=== PATIENT | female | born 1965 | race Caucasian/White ===

== ENCOUNTER 2017-07-19 14:27 | Emergency (ER) | payer BC ==
[2017-07-19] MEDS ORDERED: GUAIFENESIN/D-METH. 10 ML UDC PO ONE (15:48)
--- NOTE | 2017-07-19 15:50 | Emergency Department Record ---
History of Present Illness - General Chief complaint: Flu Like Symptoms Stated complaint: FLU -LIKE SYMPTOMS Time Seen by Provider: 07/19/17 15:08 Source: Patient, RN notes reviewed Mode of Arrival: Ambulatory - History of Present Illness Initial comments: cough and congestion and two courses of antibiotics and neg flu test by Dr. Guerrier. and not getting better Onset/Timin -: Month(s) Severity: Moderate Severity scale (1-10): 7 Quality: Aching Consistency: Constant - Harbert Coma Scale Eye Response: (4) Open spontaneously Motor Response: (6) Obeys commands Verbal Response: (5) Oriented Harbert Total: 15 - Related Data Home Medications Medication Instructions Recorded Confirmed Last Taken Albuterol Sulfate 0.083% [Neb] 3 ml NEB .EVERY 4-6 HOURS PRN 07/19/17 07/19/17 1 Day Ago ~07/18/17 Albuterol Sulfate [Proair Hfa] 1 - 2 puff IH .EVERY 4-6 HOURS PRN 07/19/1707/19 1 Day Ago ~07/18/17 Previous Rx's Medication Instructions Recorded Prednisone [Prednisone 10Mg] 10 mg PO ASDIR #30 tab 07/19/17 Allergies Allergy/AdvReac Type Severity Reaction Status Date / Time codeine Allergy Unknown HEADACHE Verified 07/19/17 15:50 hydrocodone Allergy VOMITING Verified 07/19/17 15:50 Travel Screening - Travel/Exposure Within Last 30 Days Have you traveled within the last 30 days?: No - Travel/Exposure Within Last Year Have you traveled outside the [place] in the last year?: No - Additonal Travel Details Have you been exposed to anyone with a communicable illness?: No - Travel Symptoms Symptom Screening: None Review of Systems Reviewed: No additional complaints except as noted below Constitutional: Reports: As per HPI. Denies: Chills, Fever, Malaise, Night sweats, Weakness, Weight change Eyes: Reports: As per HPI. Denies: Eye discharge, Eye pain, Photophobia, Vision change ENT: Reports: As per HPI, Congestion. Denies: Dental pain, Ear pain, Epistaxis , Hearing loss, Throat pain Respiratory: Reports: As per HPI, Cough. Denies: Dyspnea, Hemoptysis, Stridor, Wheezes Cardiovascular: Reports: As per HPI. Denies: Arrhythmia, Chest pain, Dyspnea on exertion, Edema, Murmurs, Orthopnea, Palpitations, Paroxysmal nocturnal dyspnea, Rheumatic Fever, Syncope Endocrine: Reports: As per HPI. Denies: Fatigue, Heat or cold intolerance, Polydipsia, Polyuria Gastrointestinal: Reports: As per HPI. Denies: Abdominal pain, Constipation, Diarrhea, Hematemesis, Hematochezia, Melena, Nausea, Vomiting Genitourinary: Reports: As per HPI. Denies: Abnormal menses, Discharge, Dyspareunia, Dysuria, Frequency, Hematuria, Incontinence, Retention, Urgency Musculoskeletal: Reports: As per HPI. Denies: Arthralgia, Back pain, Gout, Joint swelling, Myalgia, Neck pain Skin: Reports: As per HPI. Denies: Bruising, Change in color, Change in hair/ nails, Lesions, Pruritus, Rash Neurological: Reports: As per HPI. Denies: Abnormal gait, Confusion, Headache, Numbness, Paresthesias, Seizure, Tingling, Tremors, Vertigo, Weakness Psychiatric: Reports: As per HPI. Denies: Anxiety, Auditory hallucinations, Depression, Homicidal thoughts, Suicidal thoughts, Visual hallucinations Hematological/Lymphatic: Reports: As per HPI. Denies: Anemia, Blood Clots, Easy bleeding, Easy bruising, Swollen glands Past Medical History - SOCIAL HISTORY Smoking Status: Current every day smoker Alcohol Use: None Drug Use: None - RESPIRATORY Hx Respiratory Disorders: Yes Hx Asthma: Yes Hx Sleep Apnea: Yes Hx of CPAP: Yes - CARDIOVASCULAR Hx Cardio Disorders: No - NEURO Hx Neuro Disorders: Yes Hx Headaches: Yes Hx of Migraines: Yes (Jun, 2015) - GI Hx GI Disorders: Yes Hx Reflux: Yes Hx Nausea/Vomiting: Yes Comment:: c/o diarrhea - Hx Genitourinary Disorders: Yes Hx Bladder Problem: Yes Comment:: LMP 3 years ago - ENDOCRINE Hx Endocrine Disorders: No - MUSCULOSKELETAL Hx Musculoskeletal Disorders: No - PSYCH Hx Psych Problems: Yes Hx Anxiety: Yes Hx Depression: Yes - HEMATOLOGY/ONCOLOGY Hx Hematology/Oncology Disorders: No Family Medical History Any Significant Family History?: Yes Hx Cancer: Father, Grandparents Hx Heart Disease: Mother Hx HTN: Mother Physical Exam - General General Appearance: Alert, Oriented x3, Cooperative, No acute distress - Head Head exam: Normal inspection - Eye Eye exam: Normal appearance, PERRL Pupils: Normal accommodation - ENT ENT exam: Normal exam, Mucous membranes moist, Normal external ear exam, Normal orophraynx, TM's normal bilaterally Ear exam: Normal external inspection. negative: External canal tenderness Nasal Exam: Normal inspection. negative: Discharge, Sinus tenderness Mouth exam: Normal external inspection, Tongue normal Teeth exam: Normal inspection. negative: Dental caries Throat exam: Normal inspection. negative: Tonsillar erythema, Tonsillar exudate - Neck Neck exam: Normal inspection, Full ROM. negative: Tenderness - Respiratory Respiratory exam: Normal lung sounds bilaterally. negative: Respiratory distress - Cardiovascular Cardiovascular Exam: Regular rate, Normal rhythm, Normal heart sounds - GI/Abdominal GI/Abdominal exam: Soft, Normal bowel sounds. negative: Tenderness - Rectal Rectal exam: Deferred - exam: Deferred - Extremities Extremities exam: Normal inspection, Full ROM, Normal capillary refill. negative: Tenderness - Back Back exam: Reports: Normal inspection, Full ROM. Denies: Muscle spasm, Rash noted, Tenderness - Neurological Neurological exam: Alert, Normal gait, Oriented X3, Reflexes normal - Psychiatric Psychiatric exam: Normal affect, Normal mood - Skin Skin exam: Dry, Intact, Normal color, Warm Course Vital Signs 07/19/17 14:32 Temperature 98.2 F Pulse Rate 74 Respiratory 20 Rate Blood Pressure 121/68 Pulse Ox 98 - Reevaluation(s) Reevaluation #1: patient has hyperactive airway and will start prednisone 07/19/17 15:49 Medical Decision Making - Data Complexity MDM Data: X-Ray Ordered and/or Reviewed (negative chest xray) Disposition Clinical Impression: Viral syndrome Disposition: Home, Self-Care Condition: (1) Good Instructions: Viral Syndrome (ED) Additional Instructions: follow up with Dr. Guerrier in 3 -4 days prednisone 40 mg for three days than 30 mg for three days than 20 mg for thr days than 10 mg for three days Prescriptions: Prednisone [Prednisone 10Mg] 10 mg PO ASDIR #30 tab Forms: Patient Portal Access Time of Disposition: 15:49 Quality - Quality Measures Quality Measures: N/A - Blood Pressure Screening Does Patient Have Any of the Following: No Blood Pressure Classification: Pre-Hypertensive BP Reading Systolic Measurement: 121 Diastolic Measurement: 68 Screening for High Blood Pressure: < Pre-Hypertensive BP, F/U Documented > [ G8950] Pre-Hypertensive Follow-up Interventions: Referral to alternative/primary care provider.
--- NOTE | 2017-07-20 19:22 | RADIOLOGY REPORT ---
EXAM: CHEST 2 VIEWS HISTORY: PERSISTENT COUGH FOR THE PAST MONTH. BODY ACHES. TECHNIQUE: PA and lateral upright views of the chest were obtained. COMPARISON: 03/21/2014. FINDINGS: The heart, mediastinum, and pulmonary vasculature are normal. There is minor atelectasis or infiltrate within the lung bases bilaterally. The upper lung flores are clear. There is no pneumothorax or effusion. The bones appear intact. IMPRESSION: MILD ATELECTASIS OR INFILTRATE AT THE LUNG BASES BILATERALLY, LEFT GREATER THAN RIGHT. JOB NUMBER: [id number] [facility]
== END 2017-07-19 16:23 | disposition home or self-care (01) ==
LOC: ER 14:27
DX: B34.9 Viral infection, unspecified (principal); R05 Cough; F17.210 Nicotine dependence, cigarettes, uncomplicated
CPT/HCPCS: 71046; 99283

== ENCOUNTER 2017-08-19 13:44 | Day surgery (SDC) | payer BC ==
[~2017-08-19 13:44] MED LIST: ACETAMINOPHEN 1,000 MG/100 ML BTL IV ONE; CEFAZOLIN 2 Gram 2 GM/50 ML BAG IVPB ONE
[2017-08-19] MEDS ORDERED: FENTANYL PF 100MCG/2ML VIAL IV ONE (13:45)
[2017-08-19] MEDS ORDERED: SEVOFLURANE 250 ML INH ONE (13:45)
[2017-08-19] MEDS ORDERED: MIDAZOLAM HCL 2MG/2ML VIAL IV ONE (13:45)
[2017-08-19] MEDS ORDERED: LIDOCAINE 1% W/EPI 1:200,000 MPF 30ML SQ ONE (13:45)
[2017-08-19] MEDS ORDERED: ONDANSETRON HCL IV 4 MG/2 ML VIAL IVP ONE (13:45)
[2017-08-19] MEDS ORDERED: LIDOCAINE 2% MDV (20MG/ML) 20ML VIAL IV ONE (13:45)
[2017-08-19] MEDS ORDERED: KETOROLAC 30 MG/ML VIAL IVP ONE (13:45)
[2017-08-19] MEDS ORDERED: PROPOFOL 10 MG/ML VIAL IV ONE (13:45)
--- NOTE | 2017-08-20 12:31 | Operative Note ---
DATE OF SURGERY: 08/19/2017 PREOPERATIVE DIAGNOSIS: Mixed urinary incontinence, predominantly stress component. POSTOPERATIVE DIAGNOSIS: Mixed urinary incontinence, predominantly stress component. OPERATION: Transobturator mid urethral sling with Kris mesh and cystoscopy. Anesthesia: General. Surgeon: Too Alvarenga MD [employer] Clock [employer] Watch Hands: None. Indication: A 51-year-old female with history of incontinence and workup has revealed predominantly stress type leaking. We discussed various management options for her incontinence and ultimately she has decided to move ahead with a transobturator sling. We discussed the surgery in detail including potential risks preoperatively including pain, bleeding, infection, iatrogenic injury, urinary retention, recurring incontinence, and mesh-related complications including erosion, especially highlighting the fact to her that as a smoker, she is at a heightened risk for wound healing and mesh erosion complications. She indicated understanding and wanted to proceed as discussed. PROCEDURE: Preop informed consent was obtained. Antibiotics were given. Sedation was administered. The patient was brought to the operating room and given general anesthetic and carefully placed in the lithotomy position. Genitalia were clipped, prepped and draped and in the usual sterile fashion. Tavarez catheter was placed in the bladder, and the bladder was completely emptied. Stay sutures 2-0 silk were used to expose the labia and a weighted speculum was placed in the vagina. The bladder neck was identified and marked as well as the urethral meatus, and a midline suburethral incision was made chcf between the meatus and the bladder neck. This was carried down carefully with lateral blunt dissection to expose the space beneath the pubic rami on either side without difficulty. The wound was irrigated with antibiotics at that point. Our attention turned to placing the needles. The transobturator needles, using the helical needles contained in the Kris mesh system were used. Thigh incision made just below the attachment of the adductor longus tendon was made on either side roughly corresponding to the level of the clitoris. With one finger in the vaginal incision underneath the pubic rami, each needle was guided around and underneath the pubic ramus and guided out of the vaginal incision taking care to stay within the vaginal incision. After the needles were placed, cystoscopy was performed. There was no evidence of any bladder violation. Both ureters were identified and were effluxing clear yellow urine. The tape was then secured to each needle and then backed out to snug the sling up to the mid urethra. The area was then irrigated with copious amounts of antibiotic solution and it appeared that I had good location of the sling and without undue tension, but after I released the tapes at the level of the skin incision, it appeared to be that the sling was too loose. At that point, I removed that sling and performed the exact procedure all over again including the cystoscopy to confirm there was no bladder or ureteral injury. The second time the sling was left in excellent position in the mid urethra without any undue tension on the urethra but also not loose. This was confirmed using a curved Spears scissors between the urethra and the sling. The area was then irrigated out with antibiotics again and the vaginal incision was closed with running 2-0 Vicryl. The thigh incisions were closed with Dermabond and the bladder was filled with approximately 200 mL of sterile water before removing the Tavarez catheter and waking the patient. She was transferred to recovery in stable condition. Sponge, needle, and instrument counts correct at the end of the case. There were no intraoperative complications noted. PLAN: The patient will be given a voiding trial in recovery. If she is unable to void successfully, Tavarez catheter will be placed and she will follow up in the office later this week. If she is able to void successfully today, then she will be following up in the [facility] in 1 week to check postvoid residual and review her symptoms. She was given explicit postoperative instructions and care instructions, and [place] paperwork was also filled out as well. CC: Dr. Chey BARROW
== END 2017-08-19 18:55 | disposition home or self-care (01) ==
LOC: SUR 13:44
PROVIDERS: ATTEND Urology
DX: N39.46 Mixed incontinence (principal); J45.909 Unspecified asthma, uncomplicated; F41.8 Other specified anxiety disorders; F17.210 Nicotine dependence, cigarettes, uncomplicated
CPT/HCPCS: 57288; 00910; J1885; J2405; J3010; J0690; C1771

== ENCOUNTER 2018-01-02 10:52 | Observation (INO) | payer BC ==
[2018-01-02] MEDS ORDERED: ASPIRIN 81 MG CHEWABLE TABLET PO ONE (11:12)
[2018-01-02] MEDS ORDERED: NITROGLYCERIN 0.4MG SL TABLET #25 BTL SL PRN ×2 (11:12→14:04)
[2018-01-02 11:52] LABS: BASO % 0.5 % (0-6); EOS % 1.4 % (0-6); GRAN % 52.1 % (47-80); HEMATOCRIT 45.3 % (35.0-47.0); LYMPH % 36.9 % (16-45); MEAN CELL VOLUME 96.4 fl (81-97); MEAN CORPUSCULAR HEMOGLOBIN 31.9 pg (27-33); MEAN CORPUSCULAR HGB CONC 33.1 g/dl (32-36); MEAN PLATELET VOLUME 11.4 fl (7.4-10.4); MONO % 9.1 % (0-9); PLATELET COUNT 211 K/uL (130-400); RED CELL DISTRIBUTION WIDTH 13.6 % (11.5-14.5); WHITE BLOOD COUNT W/O DIFF 6.3 K/uL (4.2-12.2)
[2018-01-02 12:01] LABS: BLOOD UREA NITROGEN 15 mg/dL (6-20); CREATININE 0.8 mg/dL (0.5-0.9); EST GLOMERULAR FILTRATION RATE > 60 mL/min
[2018-01-02 12:02] LABS: TOTAL PROTEIN 7.4 g/dL (6.6-8.7)
[2018-01-02 12:04] LABS: GLUCOSE,RANDOM 87 mg/dL (74-109)
[2018-01-02 12:06] LABS: ALT/SGPT 20 U/L (<33); AST/SGOT 23 U/L (10.0-35.0)
[2018-01-02 12:07] LABS: ALB/GLOB RATIO 1.5 (1.1-1.8); ALBUMIN 4.4 g/dL (4.0-5.0); ALKALINE PHOSPHATASE 89 U/L (35-104); CREATINE PHOSPHOKINASE 146 U/L (26-192)
[2018-01-02 12:09] LABS: CKMB 3.1 ng/mL (<3.77)
[2018-01-02 12:10] LABS: NTpro B-NATRIURETIC PEPTIDE 22.65 pg/mL (<125)
--- NOTE | 2018-01-02 13:31 | Emergency Department Record ---
History of Present Illness - General Chief Complaint: Chest Pain Stated Complaint: CHEST PRESSURE Time Seen by Provider: 01/02/18 10:54 Source: Patient Mode of Arrival: Ambulatory Limitations: No limitations - History of Present Illness Initial Comments: pt has been having intermittent cp/pressure this week. today it has lasted 2 hrs and was up to 7/10. she also had nausea. no sob or sweating or radiation. her father had an mi in his 40s and she smokes. MD Complaint: Chest pain Onset/Timin -: Week(s) Pain Location: Left chest Pain Radiation: Back Severity: Mild Quality: Other Consistency: Constant, Intermittent Improves With: Nothing Worsens With: Nothing Treatments Prior to Arrival: None - Related Data Allergies Allergy/AdvReac Type Severity Reaction Status Date / Time codeine Allergy Unknown HEADACHE Verified 01/02/18 10:59 hydrocodone Allergy VOMITING Verified 01/02/18 10:59 Travel Screening - Travel/Exposure Within Last 30 Days Have you traveled within the last 30 days?: No Review of Systems Reviewed: No additional complaints except as noted below Constitutional: Reports: As per HPI. Denies: Chills, Fever, Malaise, Night sweats, Weakness, Weight change Eyes: Reports: As per HPI. Denies: Eye discharge, Eye pain, Photophobia, Vision change ENT: Reports: As per HPI. Denies: Congestion, Dental pain, Ear pain, Epistaxis , Hearing loss, Throat pain Respiratory: Reports: As per HPI. Denies: Cough, Dyspnea, Hemoptysis, Stridor, Wheezes Cardiovascular: Reports: As per HPI, Chest pain. Denies: Arrhythmia, Dyspnea on exertion, Edema, Murmurs, Orthopnea, Palpitations, Paroxysmal nocturnal dyspnea, Rheumatic Fever, Syncope Endocrine: Reports: As per HPI. Denies: Fatigue, Heat or cold intolerance, Polydipsia, Polyuria Gastrointestinal: Reports: As per HPI, Nausea. Denies: Abdominal pain, Constipation, Diarrhea, Hematemesis, Hematochezia, Melena, Vomiting Genitourinary: Reports: As per HPI. Denies: Abnormal menses, Discharge, Dyspareunia, Dysuria, Frequency, Hematuria, Incontinence, Retention, Urgency Musculoskeletal: Reports: As per HPI. Denies: Arthralgia, Back pain, Gout, Joint swelling, Myalgia, Neck pain Skin: Reports: As per HPI. Denies: Bruising, Change in color, Change in hair/ nails, Lesions, Pruritus, Rash Neurological: Reports: As per HPI. Denies: Abnormal gait, Confusion, Headache, Numbness, Paresthesias, Seizure, Tingling, Tremors, Vertigo, Weakness Psychiatric: Reports: As per HPI. Denies: Anxiety, Auditory hallucinations, Depression, Homicidal thoughts, Suicidal thoughts, Visual hallucinations Hematological/Lymphatic: Reports: As per HPI. Denies: Anemia, Blood Clots, Easy bleeding, Easy bruising, Swollen glands Past Medical History - SOCIAL HISTORY Smoking Status: Current every day smoker Alcohol Use: Occasional Drug Use: None - RESPIRATORY Hx Respiratory Disorders: Yes Hx Asthma: Yes Hx Sleep Apnea: Yes Hx of CPAP: Yes - CARDIOVASCULAR Hx Cardio Disorders: No - NEURO Hx Neuro Disorders: Yes Hx of Migraines: Yes - GI Hx GI Disorders: Yes Hx Reflux: Yes - Hx Genitourinary Disorders: Yes Hx Bladder Problem: Yes - ENDOCRINE Hx Endocrine Disorders: No - MUSCULOSKELETAL Hx Musculoskeletal Disorders: Yes Hx Arthritis: Yes (shoulders and back) - PSYCH Hx Psych Problems: Yes Hx Anxiety: Yes Hx Depression: Yes - HEMATOLOGY/ONCOLOGY Hx Hematology/Oncology Disorders: No Family Medical History Any Significant Family History?: Yes Hx Cancer: Father, Grandparents Hx Heart Disease: Mother Hx HTN: Mother Physical Exam - General General Appearance: Alert, Oriented x3, Cooperative, Mild distress - Head Head exam: Normal inspection - Eye Eye exam: Normal appearance, PERRL, EOMI Pupils: Normal accommodation - ENT ENT exam: Normal exam, Mucous membranes moist, Normal external ear exam, Normal orophraynx Ear exam: Normal external inspection. negative: External canal tenderness Nasal Exam: Normal inspection. negative: Discharge, Sinus tenderness Mouth exam: Normal external inspection, Tongue normal Teeth exam: Normal inspection. negative: Dental caries Throat exam: Normal inspection. negative: Tonsillar erythema, Tonsillar exudate - Neck Neck exam: Normal inspection, Full ROM. negative: Tenderness - Respiratory Respiratory exam: Normal lung sounds bilaterally. negative: Respiratory distress - Cardiovascular Cardiovascular Exam: Regular rate, Normal rhythm, Normal heart sounds - GI/Abdominal GI/Abdominal exam: Soft, Normal bowel sounds. negative: Tenderness - Rectal Rectal exam: Deferred - exam: Deferred - Extremities Extremities exam: Normal inspection, Full ROM, Normal capillary refill. negative: Tenderness - Back Back exam: Reports: Normal inspection, Full ROM. 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 ] Respiratory 20 18 20 Rate Blood Pressure 145/87 Blood Pressure 132/82 127/76 [Right Arm] Pulse Ox 97 98 95 01/02/18 01/02/18 12:06 12:51 Temperature Pulse Rate Pulse Rate [ 76 72 Warrant Server ] Respiratory 18 20 Rate Blood Pressure Blood Pressure 126/75 142/90 [Right Arm] Pulse Ox 96 98 - Reevaluation(s) Reevaluation #1: 01/02/18 13:31 ntg relieved pain Medical Decision Making - Lab Data Result diagrams: 01/02/18 11:27 01/02/18 11:27 Lab Results 01/02/18 01/02/18 01/02/18 Range/Units 11:27 11:27 11:27 WBC 6.3 (4.2-12.2) K/uL RBC 4.70 (3.80-5.40) M/uL Hgb 15.0 (11.6-16.0) gm/dl Hct 45.3 (35.0-47.0) % MCV 96.4 (81-97) fl MCH 31.9 (27-33) pg MCHC 33.1 (32-36) g/dl RDW 13.6 (11.5-14.5) % Plt Count 211 (130-400) K/uL MPV 11.4 H (7.4-10.4) fl Gran % 52.1 (47-80) % Lymphocytes % 36.9 (16-45) % Monocytes % 9.1 H (0-9) % Eosinophils % 1.4 (0-6) % Basophils % 0.5 (0-6) % D-Dimer 0.57 (0-0.59) mg/L FEU Sodium 137 (136-145) mmol/L Potassium 4.6 H (3.4-4.5) mmol/L Chloride 98 (98-107) mmol/L Carbon Dioxide 26.0 (22-29) mmol/L Anion Gap 13.0 (7-16) BUN 15 (6-20) mg/dL Creatinine 0.8 (0.5-0.9) mg/dL Estimated GFR > 60 mL/min Random Glucose 87 (74-109) mg/dL Calcium 9.6 (8.6-10.0) mg/dL Total Bilirubin 0.20 (0.2-1.0) mg/dL AST 23 (10.0-35.0) U/L ALT 20 (<33) U/L Alkaline Phosphatase 89 (35-104) U/L Creatine Kinase 146 (26-192) U/L CK-MB (CK-2) 3.1 (<3.77) ng/mL Troponin T < 0.010 (0-0.010) ng/mL NT-Pro-B Natriuret Pep 22.65 (<125) pg/mL Total Protein 7.4 (6.6-8.7) g/dL Albumin 4.4 (4.0-5.0) g/dL Globulin 3.0 (1.4-4.8) gm/dL Albumin/Globulin Ratio 1.5 (1.1-1.8) Disposition Disposition: Admit Clinical Impression: Chest pain Qualifiers: Chest pain type: unspecified Qualified Code(s): R07.9 - Chest pain, unspecified Disposition: Still a Patient at [facility] Decision to Admit: Admit from ER Decision to Admit Date: 01/02/18 Decision to Admit Time: 13:32 Quality - Quality Measures Quality Measures: N/A - Blood Pressure Screening Does Patient Have Any of the Following: No Blood Pressure Classification: Pre-Hypertensive BP Reading Systolic Measurement: 145 Diastolic Measurement: 87 Screening for High Blood Pressure: < Pre-Hypertensive BP, F/U Documented > [ G8950] Pre-Hypertensive Follow-up Interventions: Follow-up with rescreen every year.
[2018-01-02] MEDS ORDERED: ALBUTEROL HFA 8 GM INHALER INH PRN (14:04)
[2018-01-02] MEDS ORDERED: TEMAZEPAM 15 MG CAPSULE PO PRN (14:04)
[2018-01-02] MEDS ORDERED: ALBUTEROL SULFATE (0.083%) 2.5 MG/3 ML NEB INH PRN (14:04)
[2018-01-02] MEDS: NICOTINE 21 MG/24 HOUR PATCH TD SCH (15:21)
--- NOTE | 2018-01-02 15:32 | History & Physical ---
History of Present Illness - Date of Service Date of Service for History & Physical: 01/02/18 - History of Present Illness Admitting Diagnosis: chest pain History of Present Illness: Mrs. Sanchez is a 52 y/o female with presentation of left sided chest pain which began about one week ago. She describes the pain as a pressure and bloating which is associated with burping. The patient says that pain has been coming and going and she thought that it would resolve but it hasn't. She has no previous cardiac history and denies any family history of coronary artery disease. She denies palpitations, sweating, headache or palpitations during these episodes and her pain goes away spontaneously. The patient is a smoker, using 1 pack daily for the past 46 years. On arrival to [facility] ED the patients's initial workup was insignificant except for elevation in D-dimer at 0.57. The patient had a CT of the thorax which is negative for PE. Troponin and, ECG and chest xray are not suggestive of acute coronary syndrome. The patient's pain has subsided since being administered Nitrostat. She will be admitted for serial troponin draws and observation. PCP: Dr. Guerrier Travel Screening - Travel/Exposure Within Last 30 Days Have you traveled within the last 30 days?: No - Travel/Exposure Within Last Year Have you traveled outside the [place] in the last year?: No - Additonal Travel Details Have you been exposed to anyone with a communicable illness?: No Exposure Details:: many coworkers are from out of country, not usually working floor, but in b - Travel Symptoms Symptom Screening: None Review of Systems Constitutional: Reports: As per HPI. Denies: Chills, Fever, Malaise, Night sweats, Weakness, Weight change Eyes: Reports: As per HPI. Denies: Eye discharge, Eye pain, Photophobia, Vision change ENT: Reports: As per HPI. Denies: Congestion, Dental pain, Ear pain, Epistaxis , Hearing loss, Throat pain Respiratory: Reports: As per HPI. Denies: Cough, Dyspnea, Hemoptysis, Stridor, Wheezes Cardiovascular: Reports: As per HPI, Chest pain. Denies: Arrhythmia, Dyspnea on exertion, Edema, Murmurs, Orthopnea, Palpitations, Paroxysmal nocturnal dyspnea, Rheumatic Fever, Syncope Endocrine: Reports: As per HPI. Denies: Fatigue, Heat or cold intolerance, Polydipsia, Polyuria Gastrointestinal: Reports: As per HPI, Nausea. Denies: Abdominal pain, Constipation, Diarrhea, Hematemesis, Hematochezia, Melena, Vomiting Genitourinary: Reports: As per HPI. Denies: Abnormal menses, Discharge, Dyspareunia, Dysuria, Frequency, Hematuria, Incontinence, Retention, Urgency Musculoskeletal: Reports: As per HPI. Denies: Arthralgia, Back pain, Gout, Joint swelling, Myalgia, Neck pain Skin: Reports: As per HPI. Denies: Bruising, Change in color, Change in hair/ nails, Lesions, Pruritus, Rash Neurological: Reports: As per HPI. Denies: Abnormal gait, Confusion, Headache, Numbness, Paresthesias, Seizure, Tingling, Tremors, Vertigo, Weakness Psychiatric: Reports: As per HPI. Denies: Anxiety, Auditory hallucinations, Depression, Homicidal thoughts, Suicidal thoughts, Visual hallucinations Hematological/Lymphatic: Reports: As per HPI. Denies: Anemia, Blood Clots, Easy bleeding, Easy bruising, Swollen glands Past Medical History - SOCIAL HISTORY Smoking Status: Current every day smoker Alcohol Use: Occasional Alcohol Use Comment: mixed Drug Use: None - RESPIRATORY Hx Respiratory Disorders: Yes Hx Asthma: Yes Hx Sleep Apnea: Yes Hx of CPAP: Yes - CARDIOVASCULAR Hx Cardio Disorders: Yes Hx Chest Pain: Yes (this admission) - NEURO Hx Neuro Disorders: Yes Hx of Migraines: Yes - GI Hx GI Disorders: Yes Hx Reflux: Yes - Hx Genitourinary Disorders: Yes Hx Bladder Problem: Yes - ENDOCRINE Hx Endocrine Disorders: No Hx Diabetes: No Hx Thyroid Disease: No - MUSCULOSKELETAL Hx Musculoskeletal Disorders: Yes Hx Arthritis: Yes (shoulders and back) - PSYCH Hx Psych Problems: Yes Hx Anxiety: Yes Hx Depression: Yes Comment:: medication - HEMATOLOGY/ONCOLOGY Hx Hematology/Oncology Disorders: No Family Medical History Any Significant Family History?: Yes Hx Cancer: Father, Grandparents Hx Heart Disease: Mother Hx HTN: Mother H&P Meds/Allergies - Allergies Allergies: Allergies Allergy/AdvReac Type Severity Reaction Status Date / Time codeine Allergy Unknown HEADACHE Verified 01/02/18 10:59 hydrocodone Allergy VOMITING Verified 01/02/18 10:59 - Active Medications Active Medications: Current Medications Acetaminophen (Tylenol 500mg Tab) 1,000 mg PO Q6H PRN PRN Reason: PAIN - MILD(1-4)/FEVER Albuterol Sulfate (Ventolin Hfa) 1 - 2 puff INH .EVERY 4-6 HOURS PRN PRN Reason: DIFFICULTY IN BREATHING Albuterol Sulfate () 2.5 mg INH .EVERY 4-6 HOURS PRN PRN Reason: DIFFICULTY IN BREATHING Aspirin (Ecotrin (Ec)) 325 mg PO DAILY [facility] Duloxetine HCl (Cymbalta) 60 mg PO DAILY [facility] Nicotine (Nicotine 21mg) 1 patch TD DAILY [facility] Last Admin: 01/02/18 15:21 Dose: 1 patch Nitroglycerin (Nitrostat 0.4mg) 0.4 mg SL Q5MIN PRN PRN Reason: CHEST PAIN Pantoprazole Sodium (Protonix) 40 mg PO DAILY [facility] Temazepam (Restoril) 15 mg PO QHS PRN PRN Reason: INSOMNIA Physical Exam - Vital Signs Vital Signs: Vital Signs - Last 24 Hrs Temp Pulse Pulse Pulse Resp BP BP 01/02/18 14:56 72 74 18 01/02/18 13:57 97.8 F 74 18 148/72 01/02/18 12:51 72 20 142/90 01/02/18 12:06 76 18 126/75 01/02/18 11:30 90 20 127/76 01/02/18 11:28 75 18 132/82 01/02/18 10:55 97.9 F 82 20 145/87 Pulse Ox 01/02/18 14:56 01/02/18 13:57 95 01/02/18 12:51 98 01/02/18 12:06 96 01/02/18 11:30 95 01/02/18 11:28 98 01/02/18 10:55 97 - General General Appearance: Alert, Oriented x3, Cooperative, Mild distress Limitations: No limitations - Head Head exam: Normal inspection - Eye Eye exam: Normal appearance, PERRL, EOMI Pupils: Normal accommodation - ENT ENT exam: Normal exam, Mucous membranes moist, Normal external ear exam, Normal orophraynx Ear exam: Normal external inspection. negative: External canal tenderness Nasal Exam: Normal inspection. negative: Discharge, Sinus tenderness Mouth exam: Normal external inspection, Tongue normal Teeth exam: Normal inspection. negative: Dental caries Throat exam: Normal inspection. negative: Tonsillar erythema, Tonsillar exudate - Neck Neck exam: Normal inspection, Full ROM. negative: Tenderness - Respiratory Respiratory exam: Normal lung sounds bilaterally. negative: Respiratory distress - Cardiovascular Cardiovascular Exam: Regular rate, Normal rhythm, Normal heart sounds Peripheral Pulses: 3+: Radial (R), Radial (L), Dorsalis Pedis (R), Dorsalis Pedis (L) - GI/Abdominal GI/Abdominal exam: Soft, Normal bowel sounds. negative: Tenderness - Rectal Rectal exam: Deferred - exam: Deferred - Extremities Extremities exam: Normal inspection, Full ROM, Normal capillary refill. negative: Tenderness - Back Back exam: Reports: Normal inspection, Full ROM. Denies: Muscle spasm, Rash noted, Tenderness - Neurological Neurological exam: Alert, CN II-XII intact, Normal gait, Oriented X3 - Psychiatric Psychiatric exam: Normal affect, Normal mood - Skin Skin exam: Dry, Intact, Normal color, Warm Results - Labs Result Diagrams: 01/02/18 11:27 01/02/18 11:27 Labs Last 24 Hours: Laboratory Results - last 24 hr 01/02/18 01/02/18 01/02/18 11:27 11:27 11:27 WBC 6.3 RBC 4.70 Hgb 15.0 Hct 45.3 MCV 96.4 MCH 31.9 MCHC 33.1 RDW 13.6 Plt Count 211 MPV 11.4 H Gran % 52.1 Lymphocytes % 36.9 Monocytes % 9.1 H Eosinophils % 1.4 Basophils % 0.5 D-Dimer 0.57 Sodium 137 Potassium 4.6 H Chloride 98 Carbon Dioxide 26.0 Anion Gap 13.0 BUN 15 Creatinine 0.8 Estimated GFR > 60 Random Glucose 87 Calcium 9.6 Total Bilirubin 0.20 AST 23 ALT 20 Alkaline Phosphatase 89 Creatine Kinase 146 CK-MB (CK-2) 3.1 Troponin T < 0.010 NT-Pro-B Natriuret Pep 22.65 Total Protein 7.4 Albumin 4.4 Globulin 3.0 Albumin/Globulin Ratio 1.5 Triglycerides Cholesterol LDL Cholesterol Measurd VLDL Cholesterol HDL Cholesterol 01/02/18 11:27 WBC RBC Hgb Hct MCV MCH MCHC RDW Plt Count MPV Gran % Lymphocytes % Monocytes % Eosinophils % Basophils % D-Dimer Sodium Potassium Chloride Carbon Dioxide Anion Gap BUN Creatinine Estimated GFR Random Glucose Calcium Total Bilirubin AST ALT Alkaline Phosphatase Creatine Kinase CK-MB (CK-2) Troponin T NT-Pro-B Natriuret Pep Total Protein Albumin Globulin Albumin/Globulin Ratio Triglycerides 267 H Cholesterol 219 H LDL Cholesterol Measurd 134.0 H VLDL Cholesterol 53 HDL Cholesterol 70 H VTE H&P Assessment - Risk for VTE Risk for VTE: Yes Risk Level: High Risk Assessment Date: 01/02/18 Risk Assessment Time: 15:35 VTE Orders Placed or Will Be Placed: Yes AMI H&P Plan - AMI AMI Reason For No ASA Ordered: Not Indicated AMI Reason For No Statins Ordered: Not Indicated - EKG Initial Date: 01/02/18 EKG: No Acute Changes EKG Detail: No acute ST-T wave changes noted. Plan - Detailed Diagnosis and Plan (1) Chest pain Current Visit: Yes Status: Acute Qualifiers: Chest pain type: unspecified Qualified Code(s): R07.9 - Chest pain, unspecified Base Code: R07.9 - CHEST PAIN, UNSPECIFIED Comment: 01/02/18: - ECG: NSR, no acute changes identified, Qtc: CXR: negative for acute findings. - Troponins x 1 negative, serial trops ordered. - on ASA, Nitrostat 0.4mg PRN, continuous cardiac monitoring. (2) GERD (gastroesophageal reflux disease) Current Visit: Yes Status: Acute Base Code: K21.9 - GASTRO-ESOPHAGEAL REFLUX DISEASE WITHOUT ESOPHAGITIS Comment: 01/02/18: - Protonix 40mg PO daily. (3) Anxiety Current Visit: Yes Status: Acute Base Code: F41.9 - ANXIETY DISORDER, UNSPECIFIED Comment: 01/02/18: - resume Cymbalta, Restoril for sleep PRN. (4) Tobacco use Current Visit: Yes Status: Acute Base Code: Z72.0 - TOBACCO USE Comment: 01/02/18: - 45 pack/yr smoking hx. - Nicotine patch 21mg q24H (5) Elevated d-dimer Current Visit: Yes Status: Acute Base Code: R79.89 - OTHER SPECIFIED ABNORMAL FINDINGS OF BLOOD CHEMISTRY Comment: 01/02/18: - D-dimer 0.57 - CT thorax negative. - sats maintained > 94% (6) DVT prophylaxis Current Visit: Yes Status: Acute Base Code: [id number] - Comment: 01/02/18: - Lovenox 40mg daily, (7) Full code status Current Visit: Yes Status: Acute Base Code: Z78.9 - OTHER SPECIFIED HEALTH STATUS Comment: 01/02/18: FULL CODE - Disposition Serial trops overnight. D/C in the am if no elevations for outpatient stress test with PCP
[2018-01-02] MEDS: ENOXAPARIN 40 MG/0.4 ML SYR SQ SCH (18:12)
[2018-01-02] MEDS: ACETAMINOPHEN 500 MG TABLET PO PRN (18:17)
[2018-01-02 21:54] LABS: CKMB 2.4 ng/mL (<3.77)
[2018-01-03] MEDS: ACETAMINOPHEN 500 MG TABLET PO PRN (04:46)
[2018-01-03 05:01] LABS: CKMB 2.1 ng/mL (<3.77)
--- NOTE | 2018-01-03 07:36 | Discharge Summary ---
Providers Discharge Summary Date: 01/03/18 Date of admission: 01/02/18 13:45 Attending physician: ENRIQUE WATSON Primary care physician: ELVIRA MONTENEGRO D.O. Physical Exam - Vital Signs Vital Signs: Vital Signs - Last 24 Hrs Temp Pulse Pulse Pulse Resp BP BP 01/03/18 04:00 97.7 F 91 H 20 128/83 01/02/18 23:30 97.4 F L 86 20 126/76 01/02/18 21:00 87 16 01/02/18 20:04 97.8 F 87 20 133/74 01/02/18 16:33 16 01/02/18 16:04 97.9 F 82 18 132/81 01/02/18 14:56 72 74 18 01/02/18 13:57 97.8 F 74 18 148/72 01/02/18 12:51 72 20 142/90 01/02/18 12:06 76 18 126/75 01/02/18 11:30 90 20 127/76 01/02/18 11:28 75 18 132/82 01/02/18 10:55 97.9 F 82 20 145/87 Pulse Ox 01/03/18 04:00 94 L 01/02/18 23:30 95 01/02/18 21:00 01/02/18 20:04 94 L 01/02/18 16:33 01/02/18 16:04 96 01/02/18 14:56 01/02/18 13:57 95 01/02/18 12:51 98 01/02/18 12:06 96 01/02/18 11:30 95 01/02/18 11:28 98 01/02/18 10:55 97 - General General Appearance: Alert, Oriented x3, Cooperative, Mild distress Limitations: No limitations - Head Head exam: Normal inspection - Eye Eye exam: Normal appearance, PERRL, EOMI Pupils: Normal accommodation - ENT ENT exam: Normal exam, Mucous membranes moist, Normal external ear exam, Normal orophraynx Ear exam: Normal external inspection. negative: External canal tenderness Nasal Exam: Normal inspection. negative: Discharge, Sinus tenderness Mouth exam: Normal external inspection, Tongue normal Teeth exam: Normal inspection. negative: Dental caries Throat exam: Normal inspection. negative: Tonsillar erythema, Tonsillar exudate - Neck Neck exam: Normal inspection, Full ROM. negative: Tenderness - Respiratory Respiratory exam: Normal lung sounds bilaterally. negative: Respiratory distress - Cardiovascular Cardiovascular Exam: Regular rate, Normal rhythm, Normal heart sounds Peripheral Pulses: 3+: Radial (R), Radial (L), Dorsalis Pedis (R), Dorsalis Pedis (L) - GI/Abdominal GI/Abdominal exam: Soft, Normal bowel sounds. negative: Tenderness - Rectal Rectal exam: Deferred - exam: Deferred - Extremities Extremities exam: Normal inspection, Full ROM, Normal capillary refill. negative: Tenderness - Back Back exam: Reports: Normal inspection, Full ROM. Denies: Muscle spasm, Rash noted, Tenderness - Neurological Neurological exam: Alert, CN II-XII intact, Normal gait, Oriented X3 - Psychiatric Psychiatric exam: Normal affect, Normal mood - Skin Skin exam: Dry, Intact, Normal color, Warm Hospitalization - Hospitalization Admission Diagnosis: chest pain - Problem List/Discharge Diagnosis (1) Chest pain Current Visit: Yes Status: Acute Discharge Diagnosis: Chest pain type: unspecified Qualified Code(s): R07.9 - Chest pain, unspecified Base Code: R07.9 - CHEST PAIN, UNSPECIFIED Comment: 01/02/18: - ECG: NSR, no acute changes identified, Qtc: CXR: negative for acute findings. - Troponins x 1 negative, serial trops ordered. - on ASA, Nitrostat 0.4mg PRN, continuous cardiac monitoring. (2) GERD (gastroesophageal reflux disease) Current Visit: Yes Status: Acute Base Code: K21.9 - GASTRO-ESOPHAGEAL REFLUX DISEASE WITHOUT ESOPHAGITIS Comment: 01/02/18: - Protonix 40mg PO daily. (3) Anxiety Current Visit: Yes Status: Acute Base Code: F41.9 - ANXIETY DISORDER, UNSPECIFIED Comment: 01/02/18: - resume Cymbalta, Restoril for sleep PRN. (4) Tobacco use Current Visit: Yes Status: Acute Base Code: Z72.0 - TOBACCO USE Comment: 01/02/18: - 45 pack/yr smoking hx. - Nicotine patch 21mg q24H (5) Elevated d-dimer Current Visit: Yes Status: Acute Base Code: R79.89 - OTHER SPECIFIED ABNORMAL FINDINGS OF BLOOD CHEMISTRY Comment: 01/02/18: - D-dimer 0.57 - CT thorax negative. - sats maintained > 94% (6) DVT prophylaxis Current Visit: Yes Status: Acute Base Code: [id number] - Comment: 01/02/18: - Lovenox 40mg daily, (7) Full code status Current Visit: Yes Status: Acute Base Code: Z78.9 - OTHER SPECIFIED HEALTH STATUS Comment: 01/02/18: FULL CODE - Disposition Serial trops overnight. D/C in the am if no elevations for outpatient stress test with PCP - Hospitalization Course Hospital Course: Mrs. Sanchez is a 52 y/o female with presentation of left sided chest pain which began about one week ago. She describes the pain as a pressure and bloating which is associated with burping. The patient says that pain has been coming and going and she thought that it would resolve but it hasn't. She has no previous cardiac history and denies any family history of coronary artery disease. She denies palpitations, sweating, headache or palpitations during these episodes and her pain goes away spontaneously. The patient is a smoker, using 1 pack daily for the past 46 years. On arrival to [facility] ED the patients's initial workup was insignificant except for elevation in D-dimer at 0.57. The patient had a CT of the thorax which is negative for PE. Troponin and, ECG and chest xray are not suggestive of acute coronary syndrome. The patient's pain has subsided since being administered Nitrostat. She will be admitted for serial troponin draws and observation. 01/03/18: The patient is awake, alert and oriented. She says that her chest pain has resolved and that she has no shortness of breath. security monitor overnight did not show any acute changes and serial troponins are negative. PCP: Dr. 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 01/02/18 14:04 EKG QDX2@0600 Abnormal Labs: Abnormal Lab Results 01/02/18 01/02/18 01/02/18 Range/Units 11:27 11:27 11:27 MPV 11.4 H (7.4-10.4) fl Monocytes % 9.1 H (0-9) % Potassium 4.6 H (3.4-4.5) mmol/L Triglycerides 267 H (<150) mg/dL Cholesterol 219 H (<200) mg/dL LDL Cholesterol Measurd 134.0 H (0-100) mg/dL HDL Cholesterol 70 H (40-60) mg/dL Discharge Medications - Discharge Medications Home Medications: Ambulatory Orders Duloxetine HCl 60 mg PO DAILY 06/19/17 [Last Taken 1 Day Ago ~07/18/17] Discharge Plan - Discharge Instructions Activity at Discharge: Resume Usual Activities As Tolerated Diet at Discharge: Regular Diet Additional Instructions: Follow up with your PCP: Dr. Montenegro this week for possible stress test. Try to decrease and eventually stop smoking. If your symptoms return please go to your nearest ED. Quality Measures - Quality Measures Quality Measures: Documentation of Current Medications in Medical Record, Screening for High Blood Pressure and F/U Documented - Current Medications Quality Measure: Measure #130: Documentation of Current Medications Documentation of Current Medications: <Current Medications Documented/Reviewed> [[id number]] - Blood Pressure Screening Quality Measure: Screening for High Blood Pressure and Follow-Up Documented Does Patient Have Any of the Following: No Blood Pressure Classification: Pre-Hypertensive BP Reading Systolic Measurement: 145 Diastolic Measurement: 87 Screening for High Blood Pressure: < Pre-Hypertensive BP, F/U Documented > [ [id number]] Pre-Hypertensive Follow-up Interventions: Follow-up with rescreen every year., Lifestyle modifications. Lifestyle Modification: Weight Reduction, Dietary Approaches to Stop Hypertension (DASH) Eating Plan - Elder Abuse Suspicion Index EASI Reference Information: Cass JORGE, Jay C, Mary D, Tim Scales.Development and validation of a tool to assist physicians identification of elder abuse: The Elder Abuse Suspicion Index (EASI ). Journal of Elder Abuse and Neglect, 2008; 20 (3): 276-300.
[2018-01-03] MEDS: NICOTINE 21 MG/24 HOUR PATCH TD SCH (09:22)
[2018-01-03] MEDS: ENOXAPARIN 40 MG/0.4 ML SYR SQ SCH (09:22)
[2018-01-03] MEDS ORDERED: DULOXETINE HCL 30 MG CAPSULE.DR PO SCH (10:00)
[2018-01-03] MEDS ORDERED: ASPIRIN 325 MG TAB ENTERIC-COATED PO SCH (10:00)
[2018-01-03] MEDS ORDERED: PANTOPRAZOLE SODIUM 40 MG TABLET PO SCH (10:00)
--- NOTE | 2018-01-03 10:32 | CT ANGIOGRAM REPORT ---
DATE: 01/02/2018. EXAM: CT ANGIOGRAM OF THE CHEST WITH CONTRAST. HISTORY: Difficulty in breathing. TECHNIQUE: CTA of the chest was performed after the intravenous administration of 80 mL of Omnipaque 350 contrast material. Sagittal and coronal MIP images were performed on an independent workstation. FINDINGS: There is no mass or filling defect to suggest pulmonary embolism. The heart size is normal. No pericardial effusion. Mild underlying central lobular emphysematous change. No infiltrate or pleural effusion. IMPRESSION: 1. NO CTA FINDINGS SUGGESTIVE OF PULMONARY EMBOLISM. 2. MILD UNDERLYING CENTRAL LOBULAR EMPHYSEMATOUS CHANGE. 3. NO INFILTRATE OR PLEURAL EFFUSION. JOB NUMBER: [id number] [facility]
== END 2018-01-03 11:45 | disposition home or self-care (01) ==
LOC: ER 10:52 → MEDSURG 13:45
PROVIDERS: ADMIT Internal Medicine; ATTEND Internal Medicine
DX: R07.9 Chest pain, unspecified (principal); K21.9 Gastro-esophageal reflux disease without esophagitis; F41.9 Anxiety disorder, unspecified; R79.89 Other specified abnormal findings of blood chemistry; J45.909 Unspecified asthma, uncomplicated; G47.30 Sleep apnea, unspecified; M19.90 Unspecified osteoarthritis, unspecified site; F17.210 Nicotine dependence, cigarettes, uncomplicated
CPT/HCPCS: 82550; 85025; 82553 ×2; 80053; 80061; 84484 ×2; 85379; 83880; 71275; 94761; 93005 ×2; 93010; G0378 ×2; Q9967; 99217; 99220; 99285; J1650